=== PATIENT | male | born 1995 | race Caucasian/White ===

== ENCOUNTER → 2017-02-12 | Outpatient (CLI) | payer OTHER | LOC: BMCIMAGING 16:04 | PROVIDERS: ATTEND Family Medicine | DX: S89.92XA Unspecified injury of left lower leg, initial encounter (principal) ==

== ENCOUNTER 2017-02-16 19:51 | Emergency (ER) | payer OTHER ==
--- NOTE | 2017-02-16 19:57 | EDPHY ---
H & P Time Seen by Provider: 02/16/17 19:53 HPI/ROS: CHIEF COMPLAINT: Right facial droop, unable to speak HISTORY OF PRESENT ILLNESS: 21-year-old male presents with a right facial droop and inability to speak. After exercising today, he ate a burrito. After eating the burrito, at 6:30 p.m. he developed vision loss in the right side of his vision, both eyes. This lasted 10-15 minutes and then completely resolved. Followed by expressive aphasia. He tried to read and his speech was incomprehensible. He called his parents, who then called 911. Associated with 1 episode of vomiting just after the IV was placed. In route to the emergency department, the symptoms completely resolved. He now feels back to normal. Blood sugar en route 124. He takes a protein supplement. No headache, head or neck trauma or history of migraine headaches. REVIEW OF SYSTEMS: Constitutional: No fever, no chills ENT: No sore throat Respiratory: No cough, no shortness of breath Cardiac: No chest pain Gastrointestinal: no abdominal pain Genitourinary: No hematuria, no dysuria Musculoskeletal: No leg pain or swelling Skin: No rash Psychiatric: No depression Past Medical/Surgical History: Denies Social History: No recent alcohol, no drug use Smoking Status: Never smoked Physical Exam: General Appearance: Alert, pleasant Eyes: Pupils equal and round, no conjunctival pallor or injection ENT, Mouth: Mucous membranes moist Neck: Normal inspection Respiratory: Lungs are clear to auscultation Cardiovascular: Regular rate and rhythm Gastrointestinal: Abdomen is soft and nontender Neurological: Alert, oriented x3, cranial nerves II through XII intact, motor 5 /5, sensory intact to light touch, normal gait. Skin: Warm and dry, no rash Extremities: Nontender, no pedal edema Psychiatric: Mood and affect normal Constitutional: Initial Vital Signs Temperature (C) 36.7 C 02/16/17 19:52 Heart Rate 74 02/16/17 19:52 Respiratory Rate 16 02/16/17 19:52 Blood Pressure 146/102 H 02/16/17 19:52 O2 Sat (%) 97 02/16/17 19:52 O2 Delivery Mode Room Air Allergies/Adverse Reactions: No Known Allergies Allergy (Unverified 02/16/17 20:01) Home Medications: Medication Instructions Recorded NK [No Known Home Meds] 02/16/17 Medical Decision Making - Diagnostics EKG Interpretation: EKG interpreted by me reveals normal sinus rhythm, rate 65, no ST or T segment changes. Imaging Results: CT scan of the brain is normal, read by Dr. Reagan. CTA of the brain and neck are normal, read by the radiologist. ED Course/Re-evaluation: Dr. Malin at [facility] consult on patient arrival. He suggested a CT/CTA of the head and neck. If these tests are normal in the patient remains asymptomatic, plan to discharge the patient home on aspirin with Neurology follow-up. NIH stroke score 0. This patient is not a tPA candidate. He was sent to CT scan on arrival. 8:30 p.m.-reassessment. He is developing a mild bilateral headache. Neurologic exam remains normal. Query atypical migraine headache. CTA results discussed with the patient. Headache has resolved. Neurologic exam is intact and he is currently asymptomatic. Likely atypical migraine headache. I spoke with his parents in [place], both of whom are physicians. He will follow up with Neurology. Differential Diagnosis: Altered mental status including but not limited to CVA, TIA, atypical migraine headache, hypoglycemia, infectious process, electrolyte abnormality, head injury and intoxicants. - Data Points Laboratory Results: Laboratory Results 02/16/17 19:55 02/16/17 19:55 Medications Given: Discontinued Medications Aspirin (Aspirin) 324 mg PO EDNOW ONE Stop: 02/16/17 21:35 Last Admin: 02/16/17 21:44 Dose: 324 mg Departure - Departure Disposition: Home, Routine, Self-Care Clinical Impression: Expressive aphasia, Atypical migraine Condition: Good Instructions: Transient Ischemic Attack (ED), Migraine Headache (ED) Additional Instructions: CT scans of your head and neck are normal today. I suspect that you had a typical migraine headache. Take an aspirin daily until you are cleared by the neurologist. Referrals: Bruce Savage MD [Medical Doctor] - As per Instructions (Call tomorrow morning to make an appointment.)
[2017-02-16 20:06] LABS: % IMMATURE GRANULYOCYTES 0.4 % (0.0-1.1); ABSOLUTE IMMATURE GRANULOCYTES 0.04 10^3/uL (0.00-0.10); ADD DIFF? NO; ADD MORPH? NO; ADD SCAN? NO; ATYPICAL LYMPHOCYTE FLAG 10 (0-99); FRAGMENT RBC FLAG 0 (0-99); HEMATOCRIT 48.8 % (40.0-51.0); HEMOGLOBIN 16.7 g/dL (13.7-17.5); LEFT SHIFT FLG 0 (0-99); LIPEMIA HEMOLYSIS FLAG 90 (0-99); MEAN CELL HEMOGLOBIN 31.9 pg (27.9-34.1); MEAN CELL HEMOGLOBIN CONCENTR. 34.2 g/dL (32.4-36.7); MEAN CELL VOLUME 93.1 fL (81.5-99.8); MEAN PLATELET VOLUME 9.4 fL (8.7-11.7); PLATELET CLUMPS FLAG 10 (0-99); PLATELET COUNT 379 10^3/uL (150-400); RED BLOOD CELL COUNT 5.24 10^6/uL (4.40-6.38); RED CELL DISTRIBUTION WIDTH 12.6 % (11.5-15.2)
[2017-02-16 20:07] VITALS: RESP 16
[2017-02-16] MEDS ORDERED: IOPAMIDOL (ISOVUE 370) 100 ML BTL IV ONE (20:12)
[2017-02-16 20:17] LABS: ANION GAP 15 mEq/L (8-16); CALCIUM 10.3 mg/dL (8.5-10.4); CARBON DIOXIDE 24 mEq/l (22-31); CHLORIDE 102 mEq/L (97-110); CREATININE 1.1 mg/dL (0.7-1.3); GLOMERULAR FILTRATION RATE > 60; GLUCOSE 58 mg/dL (70-100); POTASSIUM 4.7 mEq/L (3.5-5.2); SODIUM 141 mEq/L (134-144)
--- NOTE | 2017-02-16 20:24 | CPEKG ---
Heart Rate: 65 RR Interval: 923 P-R Interval: 156 QRSD Interval: 88 QT Interval: 400 QTC Interval: 416 P [place]: 71 QRS [place]: 87 T Wave [place]: 60 EKG Severity - NORMAL ECG - EKG Impression: SINUS RHYTHM Electronically Signed By: Anastacia Bunn 16-Feb-2017 20:54:00
[2017-02-16] MEDS ORDERED: ASPIRIN 81 MG CHEWABLE TAB PO ONE (21:34)
[2017-02-16 21:57] VITALS: BP 138/69; PULSE 85; TEMP 98.2; O2SAT 97
== END 2017-02-16 22:06 | disposition home or self-care (01) ==
LOC: EDUNIT#
DX: F80.1 Expressive language disorder (principal); G43.809 Other migraine, not intractable, without status migrainosus
CPT/HCPCS: 82947-QW; Q9967

== ENCOUNTER 2017-06-16 10:46 | Observation (INO) | payer OTHER ==
[2017-06-16] MEDS ORDERED: HYDROmorphONE/DILAUDID 1 MG/ML INJ IVP PRN (11:20)
[2017-06-16] MEDS ORDERED: ONDANSETRON DISINTEGRATING 4 MG TAB PO PRN (11:20)
[2017-06-16] MEDS ORDERED: HYDROmorphONE/DILAUDID 2 MG TAB PO PRN (11:20)
[2017-06-16] MEDS ORDERED: ACETAMINOPHEN 325 MG TAB PO PRN (11:20)
[2017-06-16] MEDS ORDERED: ONDANSETRON 4 MG/2 ML VIAL IVP PRN (11:20)
[2017-06-16] MEDS ORDERED: HYDROmorphone HCL/NS/PF 0.4 MG/2 ML SYR IVP PRN (11:44)
[2017-06-16] MEDS: D5W 1/2 NS W/ 20 KCl/L 1,000 ML IV SCH ×2 (12:15→22:08)
[2017-06-16] MEDS ORDERED: NAPROXEN SODIUM 220 MG TAB PO PRN (12:18)
[2017-06-16] MEDS ORDERED: KETOROLAC 30 MG/1 ML SDV IVP PRN (14:12)
[2017-06-16] MEDS ORDERED: LIDOCAINE 2% VISCOUS 15 ML UDCUP PO PRN (14:13)
[2017-06-16] MEDS ORDERED: predniSONE 20 MG TAB PO ONE (14:13)
--- NOTE | 2017-06-16 14:17 | PDGENHP ---
History and Physical - Chief Complaint Acute throat swelling - History of Present Illness PCP: Shakila [facility] ENT: Dr. English HPI: 21-year-old male presenting with acute throat swelling located in his anterior throat, right greater than left, with associated intermittent pain, apnea, onset of symptoms 2 weeks ago and initially began with sinus congestion. The patient characterizes the throat swelling as a large, full sensation located in his lower throat, and has continued to evolve despite administering oral steroids as an outpatient. During the onset of the patient's symptoms of sinus congestion, he utilized Q nasal spray, Flonase, Sudafed, Biaxin without effect. When he began experiencing his throat swelling, he was initiated on Ceftin and oral prednisone 40 mg daily. He was then seen by Dr. English [facility], and his prednisone was increased to 60 mg daily. His symptoms continued to worsen, and on the evening prior to this presentation , his mother noted that he appeared apneic, recurrently throughout the night, for approximately anywhere between 5 and 15 sec. His apnea appeared To be alleviated by awakening, exacerbated by lying supine. History Information - Allergies/Home Medication List Allergies/Adverse Reactions: No Known Allergies Allergy (Unverified 02/16/17 20:01) Home Medications: Ascorbic Acid [Vitamin C 500 mg (*)] 1,000 mg PO TID 06/16/17 [Last Taken ] Cefuroxime Axetil [Ceftin (*)] 500 mg PO BID 06/16/17 [Last Taken 06/15/17] Naproxen Sodium [Aleve 220 MG (*)] 220 mg PO DAILY PRN 06/16/17 [Last Taken 12/25] predniSONE 60 mg PO DAILY 06/16/17 [Last Taken 06/15/17] I have personally reviewed and updated: family history, medical history, social history, surgical history - Past Medical History Additional medical history: Chronic sinus congestion and reported sinusitis, normally responds to courses of antibiotics, Flonase, QNASL spray. He has had negative allergy testing. 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[employer], originally from [place] Review of Systems Review of Systems: ROS: 10pt was reviewed & negative except for what was stated in HPI & below EENMT: Reports: throat swelling Respiratory: Reports: other (Apnea) Physical Exam Physical Exam: Temp Pulse Resp BP Pulse Ox 36.4 C 78 18 149/81 H 97 06/16/17 11:38 06/16/17 11:38 06/16/17 11:38 06/16/17 11:38 06/16/17 11:38 Constitutional: no apparent distress, appears nourished, not in pain, uncomfortable Eyes: PERRL, anicteric sclera, EOMI Ears, Nose, Mouth, Throat: moist mucous membranes, other (Substantially enlarged right tonsil with visible exudate, extending beyond the midline and resulting in uvula deviation) Cardiovascular: regular rate and rhythym, no murmur, rub, or gallop, No edema Respiratory: no respiratory distress, no rales or rhonchi, clear to auscultation , other (No upper airway stridor or wheezing) Gastrointestinal: normoactive bowel sounds, soft, non-tender abdomen, other ( Splenomegaly, no hepatomegaly), No guarding, No distension Skin: No erythema, No rash Neurologic: AAOx3, sensation intact bilaterally, No weakness Psychiatric: interacting appropriately, not anxious, not encephalopathic, thought process linear Lymph, Heme, Immunologic: other (Enlarged anterior and posterior cervical lymph nodes, mildly tender in the right submandibular area, with palpable left axillary lymphadenopathy, no supraclavicular lymphadenopathy) Assessment & Plan Assessment: Assessment: 21-year-old male presenting with acute tonsillar-megaly and lymphadenopathy in the setting of reported mononucleosis Plan: 1. Reported mononucleosis. Acute, new problem this provider, further workup indicated. Per patient and mother's report, he has tested positive for mononucleosis at [facility], and this appears consistent with exam -supportive care indicated including IV fluids, positional coaching for sleep with head of bed raised, pillow behind neck -continue the up titrated dosage of prednisone at 60 mg daily, give 1 dose now since he has not had any steroids yet today -hold on antibiotics given that antibiotics in setting of mono can elicit severe antibiotic reactions -get ENT consultation, planning for this afternoon, recommend that they consider counseling the patient whether he has an indication for tonsillectomy or adenoidectomy in the acute setting, verses waiting until the end of June and having a performed as scheduled -as-needed Toradol, naproxen, Dilaudid, viscous lidocaine for symptomatic management, normal baseline Cr 1.1 on review of 02/16/17 labs -if the patient is having discomfort from apnea and positional changes are not successful, a CPAP device certainly may be somewhat useful and can be trialed -gauge oral tolerance of solids and liquids, regular diet ordered -order outside records from [facility] to determine what viral studies have in fact been performed, would recommend HIV testing, but this may have already been performed with his viral studies 2. Complex migraine. Reviewed outside records including 02/16/[address] Anastacia Bunn, reporting facial droop, dysarthria, reviewed with [facility] and CT angiogram demonstrating no stenosis, patient prescribed aspirin, followed up with a provider in [place] and they did not recommend continuing aspirin, currently symptom free Diet. Regular as tolerated Prophylaxis. Low risk, SCDs Code. Full Disposition. Anticipated discharge is 06/17/2017, pending further workup and stabilization of condition as outlined above. I have discussed this patient with Chelsea Dowell, hospitalist provider, she has signed out the patient to me for evaluation.
[2017-06-16] MEDS: ASCORBIC ACID 500 MG TAB PO SCH ×2 (15:08→22:08)
[2017-06-17 05:41] LABS: % IMMATURE GRANULYOCYTES 0.8 % (0.0-1.1); ABSOLUTE IMMATURE GRANULOCYTES 0.12 10^3/uL (0.00-0.10); ADD DIFF? NO; ADD MORPH? NO; ADD SCAN? YES; FRAGMENT RBC FLAG 0 (0-99); HEMATOCRIT 47.5 % (40.0-51.0); HEMOGLOBIN 16.2 g/dL (13.7-17.5); LEFT SHIFT FLG 10 (0-99); LIPEMIA HEMOLYSIS FLAG 90 (0-99); MEAN CELL HEMOGLOBIN 31.3 pg (27.9-34.1); MEAN CELL HEMOGLOBIN CONCENTR. 34.1 g/dL (32.4-36.7); MEAN CELL VOLUME 91.9 fL (81.5-99.8); MEAN PLATELET VOLUME 9.8 fL (8.7-11.7); PLATELET CLUMPS FLAG 10 (0-99); PLATELET COUNT 341 10^3/uL (150-400); RED BLOOD CELL COUNT 5.17 10^6/uL (4.40-6.38); RED CELL DISTRIBUTION WIDTH 13.2 % (11.5-15.2)
[2017-06-17 05:45] LABS: ATYPICAL LYMPHOCYTE FLAG 160 (0-99)
[2017-06-17 05:48] LABS: ALANINE AMINOTRANSFERASE 59 IU/L (21-72); ALBUMIN 3.6 g/dL (3.5-5.0); ALKALINE PHOSPHATASE 87 IU/L (38-126); ANION GAP 15 mEq/L (8-16); ASPARTATE AMINOTRANSFERASE 25 IU/L (17-59); BILIRUBIN,TOTAL 0.3 mg/dL (0.1-1.4); CARBON DIOXIDE 23 mEq/l (22-31); CHLORIDE 104 mEq/L (97-110); CREATININE 0.9 mg/dL (0.7-1.3); GLOMERULAR FILTRATION RATE > 60; GLUCOSE 116 mg/dL (70-100); MAGNESIUM 2.2 mg/dL (1.6-2.3); POTASSIUM 4.8 mEq/L (3.5-5.2); SODIUM 142 mEq/L (134-144); TOTAL PROTEIN 6.9 g/dL (6.3-8.2)
[2017-06-17 07:04] LABS: SCAN POSITIVE
[2017-06-17 07:11] LABS: PLATELET ESTIMATE ADEQUATE (ADEQ)
[2017-06-17] MEDS: ASCORBIC ACID 500 MG TAB PO SCH (08:58)
[2017-06-17] MEDS ORDERED: predniSONE 20 MG TAB PO SCH (09:00)
--- NOTE | 2017-06-17 12:53 | SOAPPROG ---
SOAP Progress Note Assessment/Plan: Assessment/Plan: 21 year old male with mononucleosis. Admitted for observation 06/16/17 for obstructed breathing, dehydration. He is doing well, feels much better compared to yesterday. VSS. He has asymmetric tonsillitis, R>L, left posterior cervical lymph node, and adenoiditis causing significant nasal obstruction, this is stable. His airway is patent and is able to swallow liquids and solids. Recommend continue prednisone taper, IV fluids as needed, oxygen sats monitored per medicine. If he continues with adenoiditis, would recommend CT scan to rule out abscess. He will follow up outpatient, has planned tonsillectomy/ adenoidectomy planned later this month at home in [place], will defer to surgeon for timing of procedure. Discharge per medicine team. 06/17/17 13:01 Objective: Vital Signs Temp Pulse Resp BP Pulse Ox 36.5 C 61 18 131/90 H 96 06/17/17 11:26 06/17/17 11:26 06/17/17 11:26 06/17/17 11:26 06/17/17 11:26 Laboratory Results 06/17/17 04:52 06/17/17 04:53 06/16/17 06/17/17 06/18/17 05:59 05:59 05:59 Intake Total 800 Balance 800 ICD10 Worksheet Patient Problems: Problems Problem Status Onset Mononucleosis Acute Tonsillitis Acute - ICD10 Problem Qualifiers (1) Mononucleosis (2) Tonsillitis
[2017-06-17] MEDS ORDERED: IOPAMIDOL (ISOVUE-300) 100 ML BTL ONE (14:37)
--- NOTE | 2017-06-17 14:49 | ASMTCMCOM ---
CM Note CM Note Notes: Spoke w/RN, anticipate pt will dc home when medically stable. CM availble for any changes. Date Signed: 06/17/2017 02:48 PM Electronically Signed By:Cathy Ferrera RN
[2017-06-17 15:54] VITALS: BP 133/74; PULSE 68; RESP 16; TEMP 98.7; O2SAT 95
--- NOTE | 2017-06-17 17:17 | PDDCSUM ---
Discharge Summary Discharge Summary: DISCHARGE SUMMARY FOLLOW-UP ITEMS: Reassess steroid needs DATE OF ADMISSION: 06/16/2017 DATE OF DISCHARGE: 06/17/2017 DISCHARGE DIAGNOSES: 1. Acute mononucleosis with severe tonsillar enlargement CONSULTATIONS: Ear nose and throat PROCEDURES / IMAGING: Neck CT demonstrating left-sided possible phlegmon, no abscess formation CHIEF COMPLAINT: Neck swelling, difficulty swallowing SUBJECTIVE: Patient is feeling well at time discharge, he feels like he has more energy, he has been tolerating solid and liquid intake, he is able to breathe well last night PHYSICAL EXAM ON DISCHARGE: Systolic blood pressure is 120-130, heart rate 60, afebrile overnight, satting well on room air, alert awake oriented x3, the neck is visibly swollen, he has tonsillar enlargement on physical exam with exudate on the right tonsil that extends beyond the midline, does not obstruct the airway, enlarged anterior, posterior cervical lymph nodes as well as submandibular ones, nontender, alert awake oriented x3, breathing well without any stridor LABS ON DISCHARGE: White blood cell count 32105, 52% neutrophils, creatinine 0.9, liver panel unremarkable HOSPITAL COURSE BY PROBLEM: The patient presented with severe tonsillar enlargement in the setting of mononucleosis. The patient was having dysphagia and apnea prior to presentation , and he was observed overnight, receiving counseling regarding safe head and neck positioning to reduce apnea, receiving IV fluids, and advancing his diet as tolerated. The patient was eating and drinking solids and liquids prior to discharge, he did not have significant apneic episodes overnight, he is satting well on room air. Although his tonsils are significantly enlarged, ear nose and throat did not recommend urgent tonsillectomy or adenoidectomy, the patient can follow up next Tuesday as scheduled. We did increase his steroids recently to 60 mg daily, and he will continue on them for 3 subsequent days, then weaning down to 40 mg daily, then outpatient wean as per the direction of ear nose and throat. Of note, the patient also has splenomegaly, and he should be reassessed in the outpatient setting to receive recommendations when he can reinitiate potentially contact sports. The patient did not require any additional pain medication and he declined our offer a pain medication at time of discharge. DISCHARGE MEDICATIONS: Please see official discharge medication reconciliation sheet in chart , prednisone 60 mg daily then wean. DISCHARGE INSTRUCTIONS: Patient should follow up with ear nose and throat next Tuesday as scheduled, his home ear nose and throat later this month for elective surgery.
--- NOTE | 2017-06-18 13:47 | ASDISCHSUM ---
Discharge Information Plan Status: Medically Cleared to Leave: Discharge Date:06/17/2017 04:56 PM D/C Disposition: ADT D/C Disposition:Home, Routine, Self-Care Projected Discharge Date:06/17/2017 04:56 PM Transportation at D/C: Discharge Delay Reason: Follow-Up Date:06/17/2017 04:56 PM Discharge Slot: Final Diagnosis: Placement Information Patient Contact Information Contact Name:RENATE Relationship:Mother Address:[address] City:[place] Alternate Phone: State/Zip Code:[place] [address] Email: Financial Information Financial Class:HMO and PPO Plans Primary Plan Desc:[employer] Primary Plan Number:[id number] Secondary Plan Desc: Secondary Plan Number: Assessment Information [facility] CM Progress Note CM Note CM Note Notes: Spoke w/RN, anticipate pt will dc home when medically stable. CM availble for any changes. Date Signed: 06/17/2017 02:48 PM Electronically Signed By:Cathy Ferrera RN Intervention Information
== END 2017-06-17 16:56 | disposition home or self-care (01) ==
LOC: F3E 11:19
PROVIDERS: ADMIT Internal Medicine; ATTEND Internal Medicine
DX: B27.90 Infectious mononucleosis, unspecified without complication (principal); J35.1 Hypertrophy of tonsils
CPT/HCPCS: 70491; 92610; G0378; J2405; Q9967